=== PATIENT | male | born 1995 | race Two or more races ===

== ENCOUNTER 2017-05-03 00:44 | Emergency (ER) | payer MEDICAID ==
[~2017-05-03] VITALS: Ht 185.4 cm; Wt 70.8 kg
[2017-05-03 02:25] VITALS: BP 117/76
== END 2017-05-03 04:08 | disposition home or self-care (01) ==
LOC: ER 00:51
DX: S42.021A Displaced fracture of shaft of right clavicle, initial encounter for closed fracture (principal); V00.131A Fall from skateboard, initial encounter; Y93.89 Activity, other specified; Y92.89 Other specified places as the place of occurrence of the external cause; Y99.8 Other external cause status
CPT/HCPCS: 29105; 73000; 73030

== ENCOUNTER 2017-05-08 08:54 | Emergency (ER) | payer MEDICAID ==
[~2017-05-08] VITALS: Ht 185.4 cm; Wt 68.0 kg
[2017-05-08 09:54] VITALS: BP 118/82
== END 2017-05-08 10:48 | disposition home or self-care (01) ==
LOC: ER 08:54
DX: S42.001D Fracture of unspecified part of right clavicle, subsequent encounter for fracture with routine healing (principal); Z76.0 Encounter for issue of repeat prescription
CPT/HCPCS: 99283; J7030